=== PATIENT | male | born 1950 | race Caucasian/White ===

== ENCOUNTER → 2018-06-18 | Outpatient (CLI) | payer MEDICARE | LOC: M RAD 13:06 | DX: J32.4 Chronic pansinusitis (principal) | CPT/HCPCS: 70486 ==

== ENCOUNTER → 2019-04-24 | Outpatient (REF) ==
[~2019-04-24] MED LIST: ACET65TA PO; BACL10TA2; CALCTAB22 OR; CINNAMON PO; COUM1TAB17 PO; COUM1TAB18 PO; FISHCAP PO; GLIM1TAB OR; GLUC1000 PO; LIDOCAINE VISCOUS; MAGNESIUM PO; MULTIVIT PO; NEUR300C PO; PEPC20TA2; PERC5TAB8 PO; PERC7.5T8 PO; VITA400C OR; VITA500T OR; VITACAP31 PO; ZOCO20TA PO
== END ==
LOC: M LAB LCGH 09:22
PROVIDERS: ATTEND Specialist
DX: T84.59XA Infection and inflammatory reaction due to other internal joint prosthesis, initial encounter (principal)

== ENCOUNTER → 2022-08-01 | Outpatient (CLI) | payer MEDICARE ==
[2022-08-01 10:42] LABS: BLOOD UREA NITROGEN 18 MG/DL (7-18); CREATININE FOR GFR 0.79 MG/DL (0.70-1.30); GLOMERULAR FILTRATION RATE > 60.0 (>42)
== END ==
LOC: M LAB 09:21
PROVIDERS: ATTEND Orthopaedic Surgery
DX: S12.591D Other nondisplaced fracture of sixth cervical vertebra, subsequent encounter for fracture with routine healing (principal)

== ENCOUNTER 2022-08-11 11:47 | Emergency (ER) | payer MEDICARE ==
[~2022-08-11] VITALS: Ht 188 cm; Wt 94.0 kg
[~2022-08-11 11:47] MED LIST changes: -ELIQ5TAB PO
[2022-08-11] MEDS ORDERED: APIXABAN 5 MG TAB (ELIQUIS) PO ONE (12:25)
[2022-08-11] MEDS ORDERED: ELIQ5TAB PO (12:51)
[2022-08-11 12:56] VITALS: BP 116/76
== END 2022-08-11 12:58 | disposition home or self-care (01) ==
LOC: M ED 11:47
DX: I82.401 Acute embolism and thrombosis of unspecified deep veins of right lower extremity (principal); E11.9 Type 2 diabetes mellitus without complications; I10 Essential (primary) hypertension; M54.30 Sciatica, unspecified side; Z79.84 Long term (current) use of oral hypoglycemic drugs; Z79.899 Other long term (current) drug therapy

== ENCOUNTER → 2022-08-11 | Outpatient (CLI) | payer MEDICARE ==
[~2022-08-11] MED LIST changes: +ELIQ5TAB PO
== END ==
LOC: M RAD 10:06
PROVIDERS: ATTEND Orthopaedic Surgery
DX: M79.604 Pain in right leg (principal); I82.441 Acute embolism and thrombosis of right tibial vein; I82.431 Acute embolism and thrombosis of right popliteal vein

== ENCOUNTER → 2024-09-19 | Outpatient (CLI) | payer MEDICARE ==
[~2024-09-19] MED LIST changes: +ELIQ5TAB PO
== END ==
LOC: M RAD 13:23
PROVIDERS: ATTEND Otolaryngology
DX: J32.4 Chronic pansinusitis (principal); J33.0 Polyp of nasal cavity; J31.0 Chronic rhinitis

== ENCOUNTER 2024-11-19 08:14 | Day surgery (SDC) | payer MEDICARE ==
[~2024-11-19] VITALS: Ht 188 cm; Wt 91.1 kg
[~2024-11-19 08:14] MED LIST changes: +ATOR1TAB19 PO; +D 10CAP PO; +FLOM0.4C39 PO; +GLIM2TAB4 PO; +VITA-243 PO
[2024-11-19] MEDS ORDERED: LR 1,000 ML IV SCH (08:50)
[2024-11-19] MEDS ORDERED: fentaNYL 250 MCG/5 ML INJECTION As Ordered ONE (09:44)
[2024-11-19] MEDS ORDERED: LIDOCAINE 2% 100MG/5ML SDV (FOR ANES.) As Ordered ONE (09:44)
[2024-11-19] MEDS ORDERED: MIDAZOLAM INJ 2MG/2ML VIAL As Ordered ONE (09:44)
[2024-11-19] MEDS ORDERED: ROCURONIUM BROMIDE 50MG/5ML VIAL As Ordered ONE (09:44)
[2024-11-19] MEDS ORDERED: propofoL 200 MG/20 ML VIAL As Ordered ONE (09:44)
[2024-11-19] MEDS ORDERED: ONDANSETRON 4MG 2ML VIAL As Ordered ONE (09:44)
[2024-11-19] MEDS ORDERED: dexmedeTOMIDine (4MCG/ML)200MCG/50ML BTL (PRECEDEX) As Ordered ONE (10:24)
[2024-11-19] MEDS: LIDOCAINE W/EPINEPHRINE 1% 20ML VIAL As Ordered ONE (11:16)
[2024-11-19] MEDS ORDERED: ePHEDrine SULFATE 25 MG/5 ML(5MG/ML) SYRINGE As Ordered ONE (11:19)
[2024-11-19] MEDS ORDERED: PHENYLephrine 500MCG 5ML (100MCG/ML) SYRINGE As Ordered ONE (11:24)
[2024-11-19] MEDS ORDERED: SUGAMMADEX SODIUM 500 MG/5 ML VIAL (BRIDION) As Ordered ONE (11:33)
[2024-11-19] MEDS ORDERED: ACETAMINOPHEN 1000MG/100ML IV BAG As Ordered ONE (11:33)
[2024-11-19] MEDS ORDERED: LACRILUBE (AKWA TEARS) OPHTH OINT 3.5GM As Ordered ONE (11:43)
[2024-11-19] MEDS: METHYLENE BLUE 0.5% (5MG/ML) 10 ML AMP (PROVAYBLUE) As Ordered ONE (12:00)
[2024-11-19] MEDS: fentaNYL 100 MCG/2 ML INJECTION IV PRN (13:07)
[2024-11-19] MEDS: ONDANSETRON 4MG 2ML VIAL IV PRN (13:08)
[2024-11-19] MEDS: oxyCODONE 5MG TAB PO PRN (13:17)
[2024-11-19] MEDS: HYDROMORPHONE HCL 0.5 MG/ 0.5 ML SYRINGE IV PRN (13:30)
[2024-11-19 14:45] VITALS: BP 133/66; TEMP 97.5; O2SAT 95
== END 2024-11-19 14:52 | disposition home or self-care (01) ==
LOC: M SDC 08:14
PROVIDERS: ATTEND Otolaryngology
DX: J32.8 Other chronic sinusitis (principal); J33.8 Other polyp of sinus; J34.2 Deviated nasal septum; J34.89 Other specified disorders of nose and nasal sinuses; E11.9 Type 2 diabetes mellitus without complications; I10 Essential (primary) hypertension; N40.0 Benign prostatic hyperplasia without lower urinary tract symptoms; Z79.899 Other long term (current) drug therapy; Z79.84 Long term (current) use of oral hypoglycemic drugs
CPT/HCPCS: 30140; 30520; 31253; 31267; 61782; 88305; J0131; J1100; J1171; J2250; J2371; J2405; J3010; Q9968